=== PATIENT | female | born 1985 | race African-American/Black ===

== ENCOUNTER 2016-10-04 16:13 | Emergency (ER) | payer OTHER ==
[~2016-10-04] VITALS: Ht 170.2 cm; Wt 115.7 kg
--- NOTE | ~2016-10-04 | EKG ---
[place] [address] [facility] [place] [address] ELECTROCARDIOGRAM REPORT Name: SCOTTY SORIA Room #: [facility] [id number] Admission: 10/04/16 Attend Phys: Discharge: 10/04/16 Date of : 81 Report #: [id number] THIS REPORT FOR: //name// [facility] ED Test Date: 2016-10-04 Test Time: 16:18:47 Pat Name: SCOTTY SORIA Department: Room: Gender: F Local Driver: timothy : 1985 Requested By: Bertrand Sky Order Number: [id number] MD: Bryan Munguia Measurements Intervals [place] Rate: 92 P: 45 [place]: 165 QRS: 28 QRSD: 88 T: 35 QT: 389 QTc: 482 Interpretive Statements Sinus rhythm Probable anteroseptal infarct, old Baseline wander in lead(s) V2,V3,V6 No previous ECG available for comparison Electronically Signed On 10-05-2016 8:50:35 [employer] by Bryan Munguia [email or web address] <ELECTRONICALLY SIGNED> By: Bryan Munguia MD, [facility] 10/05/16 0850 1618 17 Bryan Munguia MD, FAC /EPI
[~2016-10-04 16:13] MED LIST: AUGMENTIN 875875 M1 PO; CIPROFLOXACIN500 M1 PO; FLAGYL500 MG PO; IBUPROFEN 800800 MG PO; MACROBID 100 M100 M1 PO; NAPROSYN500 MG PO; NOHOMEMEDICATIONS; NORCO 5-325 TA1 EACH PO; NORCO 7.5-3251 EACH PO; POTASSIUM20 PO; SLOW-MAG64 MG PO; TYLENOL325 MG PO; ZOFRAN ODT4 MG PO
[2016-10-04 16:56] LABS: ABSOLUTE NEUTROPHILS 5.2 thou/uL (1.4-8.2); BASOPHILS 1.3 % (0.0-2.0); EOSINOPHILS 2.6 % (0.0-3.0); HEMATOCRIT 40.4 % (37.0-47.0); HEMOGLOBIN 13.7 gm/dL (12.0-15.0); LYMPHOCYTES 28.2 % (24.0-44.0); MANUAL DIFF NO; MCV 85.2 fL (80.0-100.0); MONOCYTES 5.3 % (1.0-8.0); PLATELET COUNT 268 thou/uL (150-400); POLYS 62.6 % (36.0-66.0); RBC 4.74 mil/uL (4.20-5.00); RDW 14.6 % (10.5-14.5); WBC 8.3 thou/uL (4.0-11.0)
[2016-10-04 17:03] LABS: ANION GAP 9 mmol/L (7-16); BUN 10 mg/dL (7-18); CALCIUM 9.3 mg/dL (8.5-10.1); CHLORIDE 101 mmol/L (98-107); CO2 28 mmol/L (21-32); CREATININE 0.8 mg/dL (0.6-1.3); GLUCOSE 94 mg/dL (70-99); POTASSIUM 3.7 mmol/L (3.5-5.1); SODIUM 138 mmol/L (136-145)
[2016-10-04] MEDS ORDERED: HYDROCHLOROTHIA25 M2 PO (17:04)
[2016-10-04] MEDS ORDERED: TRINESSA1 EACH PO (17:04)
[2016-10-04] MEDS ORDERED: PROZAC20 MG PO (17:04)
[2016-10-04] MEDS ORDERED: TRAZODONE HCL50 MG PO (17:05)
[2016-10-04] MEDS ORDERED: PERPHENAZINE 2 M2 MG PO (17:05)
[2016-10-04 17:12] LABS: ALBUMIN 3.5 g/dL (3.4-5.0); ALKALINE PHOSPHATASE 59 U/L (46-116); SGOT 8 U/L (15-37); SGPT 18 U/L (30-65); TOTAL BILIRUBIN 0.3 mg/dL (<0.1-1.0); TOTAL PROTEIN 7.8 g/dL (6.4-8.2); TROPONIN-I < 0.04 ng/mL (<0.04-0.07)
[2016-10-04] MEDS ORDERED: COZAAR 25 MG TA25 M1 PO (17:19)
[2016-10-04 17:30] VITALS: BP 134/80
== END 2016-10-04 17:44 | disposition home or self-care (01) ==
LOC: ER 16:13
PROVIDERS: Physician Assistant
DX: I10 Essential (primary) hypertension (principal); R07.9 Chest pain, unspecified; R51 Headache; F17.210 Nicotine dependence, cigarettes, uncomplicated